=== PATIENT | female | born 1965 | race Caucasian/White ===

== ENCOUNTER → 2018-01-13 | Outpatient (CLI) | payer BC ==
[2004-12-27 23:25] VITALS: PULSE 100; TEMP 101.6
== END ==
LOC: MC.RAD 14:40
DX: Z12.31 Encounter for screening mammogram for malignant neoplasm of breast (principal)

== ENCOUNTER 2018-09-18 13:34 | Emergency (ER) | payer BC ==
[~2018-09-18] VITALS: Ht 167.6 cm; Wt 70.0 kg
[2018-09-18 13:40] VITALS: TEMP 97.5
[2018-09-18 14:11] LABS: BASO % 0.6 % (0.0-2.0); EOS # 0.1 (0.0-0.7); EOS % 1.4 % (0-4.0); GRAN # 3.4 (1.4-6.5); GRAN % 48.5 % (42.2-75.2); HEMATOCRIT 41.8 % (37.0-47.0); HEMOGLOBIN 13.8 g/dl (12.5-16.0); MEAN CELL VOLUME 88 fl (80.0-100.0); MEAN CORPUSCULAR HEMOGLOBIN 29 pg (27.0-31.0); MEAN CORPUSCULAR HGB CONC 33 g/dl (33.0-37.0); MEAN PLATELET VOLUME 10.3 fl (7.4-10.4); MONO # 0.4 (0.1-0.6); MONO % 6.1 % (1.7-9.3); PLATELET COUNT 286 K/mm3 (130-400); RED BLOOD COUNT 4.76 M/mm3 (4.10-5.30); REDCELL DISTRIBUTION WIDTH-CV 12.4 % (11.5-14.5)
[2018-09-18] MEDS ORDERED: OSPHENA60 MG PO (14:11)
[2018-09-18] MEDS ORDERED: ESTRACE 1MG1 MG/TAB PO (14:12)
[2018-09-18 14:13] LABS: ALANINE AMINOTRANSFERASE 20 U/L (9-52); ALBUMIN 4.5 gm/dL (3.5-5.0); ALKALINE PHOSPHATASE 93 U/L (50-136); ANION GAP 10 mmol/L (7-16); AST,SGOT 26 U/L (15-37); BILIRUBIN,TOTAL 0.6 mg/dL (0.0-1.0); BLOOD UREA NITROGEN 13 mg/dL (7-17); CALCIUM 9.5 mg/dL (8.4-10.2); CARBON DIOXIDE 23 mmol/L (22-30); CHLORIDE 106 mmol/L (98-107); CREATININE, serum 0.62 mg/dL (0.52-1.25); GLUCOSE 83 mg/dL (74-106); SODIUM 139 mmol/L (137-145); TOTAL PROTEIN 7.6 gm/dL (6.4-8.2)
[2018-09-18 14:14] LABS: PROTHROMBIN TIME 11.3 SECONDS (9.7-12.8)
[2018-09-18 14:17] LABS: PARTIAL THROMBOPLASTIN TIME 32.3 SECONDS (26.0-37.0)
[2018-09-18 14:24] LABS: TROPONIN-I < 0.012 ng/mL (0.000-0.035)
[2018-09-18 15:00] VITALS: BP 121/75; PULSE 76
== END 2018-09-18 15:00 | disposition home or self-care (01) ==
LOC: COL.ER 13:34
PROVIDERS: Family Medicine
DX: R07.89 Other chest pain (principal); E78.5 Hyperlipidemia, unspecified; Z98.890 Other specified postprocedural states

== ENCOUNTER → 2019-01-22 | Outpatient (CLI) | payer BC ==
[2004-12-27 23:25] VITALS: PULSE 100; TEMP 101.6
[~2019-01-22] MED LIST: ESTRACE 1MG1 MG/TAB PO; OSPHENA60 MG PO
== END ==
LOC: MC.RAD 08:43
DX: Z12.31 Encounter for screening mammogram for malignant neoplasm of breast (principal)

== ENCOUNTER → 2020-02-03 | Outpatient (CLI) | payer BC ==
[2004-12-27 23:25] VITALS: PULSE 100; TEMP 101.6
== END ==
LOC: MC.RAD 17:21
DX: Z12.31 Encounter for screening mammogram for malignant neoplasm of breast (principal)

== ENCOUNTER → 2022-04-05 | Outpatient (CLI) | payer BC ==
[2004-12-27 23:25] VITALS: PULSE 100; TEMP 101.6
== END ==
LOC: MC.RAD 10:48
DX: Z12.31 Encounter for screening mammogram for malignant neoplasm of breast (principal)

== ENCOUNTER → 2024-02-17 | Outpatient (CLI) | payer BC ==
[2004-12-27 23:25] VITALS: PULSE 100; TEMP 101.6
== END ==
LOC: MC.RAD 14:16
DX: Z12.31 Encounter for screening mammogram for malignant neoplasm of breast (principal)